=== PATIENT | male | born 1975 | race Two or more races ===

== ENCOUNTER 2018-01-10 21:41 | Emergency (ER) | payer MEDICAID ==
[~2018-01-10] VITALS: Ht 170.2 cm; Wt 80.0 kg
[~2018-01-10 21:41] MED LIST: CEPH-571 PO; LIB25C PO; NO HOME MEDS; ONDA8TAB9 PO
[2018-01-10 21:47] VITALS: BP 116/80
== END 2018-01-10 23:42 | disposition left against medical advice (07) ==
LOC: ER 21:41
DX: Z20.2 Contact with and (suspected) exposure to infections with a predominantly sexual mode of transmission (principal); R30.0 Dysuria; R36.9 Urethral discharge, unspecified; F12.90 Cannabis use, unspecified, uncomplicated; F11.90 Opioid use, unspecified, uncomplicated
CPT/HCPCS: 99281

== ENCOUNTER 2020-02-21 23:00 | Emergency (ER) | payer MEDICAID ==
[~2020-02-21] VITALS: Ht 170.2 cm; Wt 88.5 kg
[2020-02-21 23:05] VITALS: BP 149/100
== END 2020-02-21 23:45 | disposition home or self-care (01) ==
LOC: ER 23:01
DX: F12.90 Cannabis use, unspecified, uncomplicated (principal); F15.10 Other stimulant abuse, uncomplicated; F11.10 Opioid abuse, uncomplicated; F41.9 Anxiety disorder, unspecified; F17.200 Nicotine dependence, unspecified, uncomplicated; Z59.0 Homelessness; Z00.00 Encounter for general adult medical examination without abnormal findings; Z56.0 Unemployment, unspecified; Z79.899 Other long term (current) drug therapy
CPT/HCPCS: 99281

== ENCOUNTER 2020-07-30 19:51 | Emergency (ER) | payer MEDICAID ==
[~2020-07-30] VITALS: Ht 170.2 cm; Wt 93.1 kg
[2020-07-30 20:00] VITALS: BP 154/100
[2020-07-30] MEDS ORDERED: ONDA4TAB6 PO (21:10)
== END 2020-07-30 21:28 | disposition home or self-care (01) ==
LOC: ER 19:52
DX: F11.23 Opioid dependence with withdrawal (principal); F41.9 Anxiety disorder, unspecified; R61 Generalized hyperhidrosis; R06.89 Other abnormalities of breathing; F12.90 Cannabis use, unspecified, uncomplicated; Z56.0 Unemployment, unspecified; Z87.01 Personal history of pneumonia (recurrent); Z59.0 Homelessness; Z72.89 Other problems related to lifestyle; Z87.81 Personal history of (healed) traumatic fracture; Z86.19 Personal history of other infectious and parasitic diseases
CPT/HCPCS: 99283

== ENCOUNTER 2020-12-27 02:48 | Emergency (ER) | payer MEDICAID ==
[~2020-12-27] VITALS: Ht 170.2 cm; Wt 88.6 kg
[~2020-12-27 02:48] MED LIST changes: +ONDA4TAB6 PO
[2020-12-27 03:05] VITALS: BP 120/78
== END 2020-12-27 04:15 | disposition home or self-care (01) ==
LOC: ER 02:49
DX: J02.9 Acute pharyngitis, unspecified (principal); Z20.822 Contact with and (suspected) exposure to COVID-19; B34.9 Viral infection, unspecified; R53.1 Weakness; R52 Pain, unspecified; R11.0 Nausea; F41.9 Anxiety disorder, unspecified; F12.90 Cannabis use, unspecified, uncomplicated; F11.90 Opioid use, unspecified, uncomplicated; Z87.01 Personal history of pneumonia (recurrent); Z86.19 Personal history of other infectious and parasitic diseases; Z72.89 Other problems related to lifestyle; Z56.0 Unemployment, unspecified; Z59.0 Homelessness; Z79.2 Long term (current) use of antibiotics; Z79.899 Other long term (current) drug therapy
CPT/HCPCS: 87635; 99283; C9803

== ENCOUNTER 2022-05-06 09:01 | Emergency (ER) | payer MEDICAID ==
[~2022-05-06] VITALS: Ht 170.2 cm; Wt 84.1 kg
[2022-05-06 09:04] VITALS: BP 118/82
[2022-05-06] MEDS ORDERED: ondansetron 4mg rapidly disintigrating tab PO ONE (10:55)
[2022-05-06 11:15] LABS: BASOPHILS # (AUTO) 0.1 X10'3 (0-0.2); BASOPHILS % (AUTO) 1.5 % (0-1); EOSINOPHILS # (AUTO) 0.3 X10'3 (0-0.9); EOSINOPHILS % (AUTO) 7.4 % (0-6); HEMATOCRIT 45.9 % (42.0-52.0); HEMOGLOBIN 15.6 g/dl (14.0-17.9); LYMPHOCYTES # (AUTO) 1.3 X10'3 (1.1-4.8); LYMPHOCYTES % (AUTO) 28.1 % (21-51); MEAN CORPUSCULAR HEMOGLOBIN 30.1 PG (27.0-31.0); MEAN CORPUSCULAR VOLUME 88.5 FL (78-98); MEAN PLATELET VOLUME 7.8 FL (7.4-10.4); MONOCYTES # (AUTO) 0.5 X10'3 (0-0.9); MONOCYTES % (AUTO) 11.5 % (2-12); NEUTROPHILS # (AUTO) 2.4 X10'3 (1.8-7.7); NEUTROPHILS % (AUTO) 51.5 % (42-75); PLATELET COUNT 196 X10'3 (140-440); RED BLOOD COUNT 5.19 X10'6 (4.70-6.10); RED CELL DISTRIBUTION WIDTH 13.2 % (11.5-14.5); WHITE BLOOD COUNT 4.6 X10'3 (4.5-11.0)
[2022-05-06 11:24] LABS: ALANINE AMINOTRANSFERASE 27 U/L (12-78); ALBUMIN 3.9 G/DL (3.4-5.0); ALBUMIN/GLOBULIN RATIO 0.9 (1.1-1.5); ALKALINE PHOSPHATASE 74 IU/L (46-116); ANION GAP 8 (8-16); ASPARTATE AMINO TRANSFERASE 32 U/L (10-37); BILIRUBIN,TOTAL 0.6 MG/DL (0.1-1.0); BLOOD UREA NITROGEN 15 MG/DL (7-18); BUN/CREATININE RATIO 19.7 (5.4-32.0); CALCIUM 9.5 MG/DL (8.5-10.1); CHLORIDE 100 MMOL/L (99-107); CREATININE 0.76 MG/DL (0.60-1.10); GLUCOSE 112 MG/DL (70-104); LIPASE < 50 U/L (73-393); POTASSIUM 4.2 MMOL/L (3.5-5.1); SODIUM 136 MMOL/L (135-145); TOTAL CARBON DIOXIDE 28.3 MMOL/L (24-32); TOTAL PROTEIN 8.1 G/DL (6.4-8.2); eGFR > 90 ML/MIN
[2022-05-06] MEDS ORDERED: ONDA4TAB12 PO (11:30)
== END 2022-05-06 11:42 | disposition home or self-care (01) ==
LOC: ER 09:02
DX: R11.2 Nausea with vomiting, unspecified (principal); Z59.00 Homelessness unspecified
CPT/HCPCS: 36415; 80053; 83690; 85025; 99283

== ENCOUNTER 2023-10-29 20:25 | Inpatient (IN) | payer MEDICAID, OTHER ==
[~2023-10-29] VITALS: Ht 175.3 cm; Wt 101.0 kg
[~2023-10-29 20:25] MED LIST changes: +ONDA4TAB12 PO
[2023-10-29] MEDS: tranexamic acid inj. 1,000 MG in normal saline 100ml IV soln 90 ML IV ONE (20:46)
[2023-10-29] MEDS: normal saline 1000ml 1,000 ML IV ONE ×2 (20:47)
[2023-10-29] MEDS ORDERED: iohexol 300mg/ml 100ml inj. ONE (20:52)
[2023-10-29] MEDS ORDERED: iohexol 350MG/ML 100ml bottle IV ONE (20:54)
[2023-10-29 20:57] LABS: BASOPHILS # (AUTO) 0.1 X10'3 (0-0.2); BASOPHILS % (AUTO) 1.2 % (0-1); EOSINOPHILS # (AUTO) 0.3 X10'3 (0-0.9); EOSINOPHILS % (AUTO) 4.2 % (0-6); HEMATOCRIT 42.1 % (42.0-52.0); HEMOGLOBIN 13.9 g/dl (14.0-17.9); LYMPHOCYTES # (AUTO) 3.6 X10'3 (1.1-4.8); LYMPHOCYTES % (AUTO) 47.4 % (21-51); MEAN CORPUSCULAR HEMOGLOBIN 30.7 PG (27.0-31.0); MEAN CORPUSCULAR VOLUME 92.9 FL (78-98); MEAN PLATELET VOLUME 7.6 FL (7.4-10.4); MONOCYTES # (AUTO) 0.7 X10'3 (0-0.9); MONOCYTES % (AUTO) 9.4 % (2-12); NEUTROPHILS # (AUTO) 2.8 X10'3 (1.8-7.7); NEUTROPHILS % (AUTO) 37.8 % (42-75); PLATELET COUNT 303 X10'3 (140-440); RED BLOOD COUNT 4.54 X10'6 (4.70-6.10); RED CELL DISTRIBUTION WIDTH 13.5 % (11.5-14.5); WHITE BLOOD COUNT 7.5 X10'3 (4.5-11.0)
[2023-10-29 21:00] LABS: APTT 25 SECONDS (22-32); INR 1.1 INR
[2023-10-29] MEDS: vancomycin/NS 1 GM ADD-VANTAGE 250 ML IV ONE (21:03)
[2023-10-29 21:04] LABS: ALBUMIN 3.8 G/DL (3.4-5.0); ANION GAP 14 (8-16); BLOOD UREA NITROGEN 19 MG/DL (7-18); BUN/CREATININE RATIO 20.7 (10.0-20.0); CHLORIDE 102 MMOL/L (99-107); CREATININE 0.92 MG/DL (0.60-1.10); ETHANOL 144 MG/DL (<10); GLUCOSE 120 MG/DL (70-104); POTASSIUM 3.3 MMOL/L (3.5-5.1); SODIUM 139 MMOL/L (135-145); TOTAL CARBON DIOXIDE 23.5 MMOL/L (24-32); eCRCL 97 ML/MIN; eGFR 87 ML/MIN
[2023-10-29] MEDS ORDERED: midazolam 1 mg/ML 2ml injection ONE (21:17)
[2023-10-29] MEDS ORDERED: LIDOcaine 1% (10mg/ml) 2ml vial ONE (21:58)
[2023-10-29] MEDS ORDERED: rocuronium 10mg/ml inj IV ONE (21:58)
[2023-10-29] MEDS ORDERED: fentaNYL /PF 50mcg/ml 5ml ampule ONE (21:58)
[2023-10-29] MEDS ORDERED: LIDOcaine 2% (20mg/ml) 5ml vial ONE (21:58)
[2023-10-29] MEDS ORDERED: neostigmine methylsulfate 1 MG/ML 10ml vial ONE (22:15)
[2023-10-29] MEDS ORDERED: ondansetron/PF 4mg/2ml inj ONE (22:15)
[2023-10-29] MEDS ORDERED: dexamethasone sod phosphate 4mg/ml inj. ONE (22:15)
[2023-10-29] MEDS ORDERED: glycopyrrolate 0.2mg/ml inj ONE (22:15)
[2023-10-29 22:28] VITALS: BP 139/82; PULSE 115; RESP 18; O2SAT 99
[2023-10-29] MEDS ORDERED: ondansetron/PF 4mg/2ml inj IV PRN ×2 (22:30→22:35)
[2023-10-29] MEDS ORDERED: naloxone 0.4 mg/ml inj IV PRN (22:30)
[2023-10-29] MEDS ORDERED: meperidine/PF 25mg/ml syringe IV PRN ×2 (22:35)
[2023-10-29] MEDS ORDERED: ringers solution, lacted 1,000 ML IV SCH (22:35)
[2023-10-29] MEDS ORDERED: proCHLORperazine 10 MG/2 ml inj IV PRN (22:35)
[2023-10-29] MEDS ORDERED: labetalol 20mg/4ml (5mg/ml) syringe IV PRN (22:35)
[2023-10-29] MEDS ORDERED: morphine 2 MG/ML inj. syringe IV PRN (22:35)
[2023-10-29 22:40] VITALS: BP 139/82; PULSE 97; RESP 17; O2SAT 96
[2023-10-29] MEDS: meperidine/PF 25mg/ml syringe IV PRN (22:40)
[2023-10-29] MEDS ORDERED: CLINDAMYCIN 600mg IN NS 50ML 50 ML IV SCH (22:43)
[2023-10-29] MEDS: acetaminophen 1,000mg/100ml IV 100 ML IV ONE (22:46)
[2023-10-29 22:50] VITALS: BP 138/85; PULSE 86; RESP 14; O2SAT 100
[2023-10-29] MEDS: morphine 4 MG/ML inj SYRINge IV PRN (22:54)
[2023-10-29 23:00] VITALS: BP 144/86; PULSE 87; RESP 13; O2SAT 100
[2023-10-29 23:08] VITALS: BP 144/86; PULSE 87; RESP 13; O2SAT 100
[2023-10-29 23:15] VITALS: BP 178/88; PULSE 88; RESP 18; TEMP 97.2; O2SAT 99
[2023-10-29] MEDS: hydrALAZINE 20mg/ml inj. IV PRN (23:35)
[2023-10-30] VITALS (8 sets, daily range): BP systolic 138–162; BP diastolic 72–78; PULSE 80–87; RESP 10–18; TEMP 97; O2SAT 98–99
[2023-10-30] MEDS: potassium CL 20mEq in D5-1/2NS 1,000 ML IV SCH (00:46)
[2023-10-30] MEDS: clindamycin 600mg/D5W 50ml 50 ML IV SCH (00:47)
[2023-10-30 02:08] LABS: BASOPHILS % (AUTO) 0.2 % (0-1); EOSINOPHILS % (AUTO) 0.1 % (0-6); HEMATOCRIT 39.6 % (42.0-52.0); HEMOGLOBIN 13.2 g/dl (14.0-17.9); LYMPHOCYTES # (AUTO) 0.5 X10'3 (1.1-4.8); MEAN CORPUSCULAR HGB CONC 33.4 g/dL (33.0-36.5); MEAN CORPUSCULAR VOLUME 92.8 FL (78-98); MEAN PLATELET VOLUME 7.7 FL (7.4-10.4); MONOCYTES # (AUTO) 0.2 X10'3 (0-0.9); MONOCYTES % (AUTO) 1.5 % (2-12); NEUTROPHILS # (AUTO) 9.8 X10'3 (1.8-7.7); NEUTROPHILS % (AUTO) 93.2 % (42-75); PLATELET COUNT 235 X10'3 (140-440); RED BLOOD COUNT 4.26 X10'6 (4.70-6.10); RED CELL DISTRIBUTION WIDTH 13.8 % (11.5-14.5); WHITE BLOOD COUNT 10.5 X10'3 (4.5-11.0)
[2023-10-30 02:17] LABS: ALBUMIN 3.4 G/DL (3.4-5.0); ANION GAP 10 (8-16); BLOOD UREA NITROGEN 13 MG/DL (7-18); BUN/CREATININE RATIO 19.7 (10.0-20.0); CALCIUM 8.3 MG/DL (8.5-10.1); CHLORIDE 102 MMOL/L (99-107); CREATININE 0.66 MG/DL (0.60-1.10); GLUCOSE 159 MG/DL (70-104); POTASSIUM 3.8 MMOL/L (3.5-5.1); SODIUM 138 MMOL/L (135-145); TOTAL CARBON DIOXIDE 25.8 MMOL/L (24-32); eCRCL 135 ML/MIN; eGFR > 90 ML/MIN
[2023-10-30] MEDS: HYDROcodone/acetaminophen 10/325mg tab PO PRN (04:28)
[2023-11-01] MEDS ORDERED: METH10SO PO (11:09)
[2023-11-01] MEDS ORDERED: DOXY-457 PO (11:22)
== END 2023-10-30 06:45 | disposition left against medical advice (07) | DRG 581 ==
LOC: ER 20:25 → UNDOADMOB 21:40 → EEVIPCON 21:40 → PACU 21:40 → OBSVTOIN 22:31 → CICU 2S 23:15
PROVIDERS: ADMIT Surgery; ATTEND Surgery
PROC: 0WJ60ZZ Inspection of Neck, Open Approach (ICD-10-PCS; principal; 2023-10-29 21:00)
DX: S11.91XA Laceration without foreign body of unspecified part of neck, initial encounter (principal); F41.9 Anxiety disorder, unspecified; Z53.21 Procedure and treatment not carried out due to patient leaving prior to being seen by health care provider; X99.8XXA Assault by other sharp object, initial encounter; Y93.89 Activity, other specified; Y92.89 Other specified places as the place of occurrence of the external cause; Y99.8 Other external cause status
CPT/HCPCS: Z7506; Z7508; 36415; 36430; 70491; 71045; 71260; 74177; 80048; 80320; 84484; 85025; 85610; 85730; 86885; 86900; 86901; 86920; A4615; A4618; A6258; A6449; A7000; C1751; G0378; J0131; J0360; J1100; J2175; J2250; J2270; J2405; J2710; J3010; J3370; J3480; J3490; J7030; J7120; P9016; Q9967

== ENCOUNTER 2023-11-12 02:33 | Emergency (ER) | payer OTHER ==
[~2023-11-12] VITALS: Ht 170.2 cm; Wt 93.2 kg
[~2023-11-12 02:33] MED LIST changes: -CEPH-571 PO; +DOXY-460 PO; -LIB25C PO; +METH10SO PO; -NO HOME MEDS; -ONDA4TAB12 PO; -ONDA4TAB6 PO; -ONDA8TAB9 PO
[2023-11-12 02:38] VITALS: BP 128/83; PULSE 116; RESP 18; TEMP 98.7; O2SAT 98
[2023-11-13] MEDS ORDERED: AMOX-117 PO (08:40)
[2023-11-13] MEDS ORDERED: CHLO473M13 PO (08:40)
== END 2023-11-12 04:29 | disposition left against medical advice (07) ==
LOC: ER 02:33
DX: R22.9 Localized swelling, mass and lump, unspecified (principal); Z53.21 Procedure and treatment not carried out due to patient leaving prior to being seen by health care provider

== ENCOUNTER 2023-11-13 07:39 | Emergency (ER) | payer SELFPAY ==
[~2023-11-13] VITALS: Ht 170.2 cm; Wt 87.3 kg
[~2023-11-13 07:39] MED LIST changes: -DOXY-460 PO
[2023-11-13 08:00] VITALS: TEMP 98.4
[2023-11-13] MEDS ORDERED: AMOX-117 PO (08:40)
[2023-11-13] MEDS ORDERED: CHLO473M13 PO (08:40)
[2023-11-13 08:41] VITALS: BP 142/78; PULSE 90; RESP 16; O2SAT 95
[2023-11-13] MEDS: amox tr/potassium clavulanate 875/125mg TAB PO ONE (08:48)
== END 2023-11-13 08:55 | disposition home or self-care (01) ==
LOC: ER 07:40
DX: K13.0 Diseases of lips (principal); K04.7 Periapical abscess without sinus; Z79.2 Long term (current) use of antibiotics; Z79.899 Other long term (current) drug therapy
CPT/HCPCS: 99283

== ENCOUNTER 2024-02-18 13:30 | Emergency (ER) | payer MEDICAID ==
[~2024-02-18] VITALS: Ht 170.2 cm; Wt 90.9 kg
[~2024-02-18 13:30] MED LIST changes: +CHLO473M13 PO
[2024-02-18] MEDS: ketorolac trometh 30MG/ML vial 30 MG/ML VIAL IM ONE (14:06)
[2024-02-18] MEDS ORDERED: AMOX-580 PO (14:19)
[2024-02-18 14:40] VITALS: BP 133/83; PULSE 79; RESP 18; TEMP 98.8; O2SAT 98
== END 2024-02-18 14:40 | disposition home or self-care (01) ==
LOC: ER 13:31
DX: K08.89 Other specified disorders of teeth and supporting structures (principal); K04.7 Periapical abscess without sinus; K02.9 Dental caries, unspecified; F11.90 Opioid use, unspecified, uncomplicated; F41.9 Anxiety disorder, unspecified; Z79.899 Other long term (current) drug therapy; Z72.89 Other problems related to lifestyle; Z59.00 Homelessness unspecified
CPT/HCPCS: 96372; 99283; J1885

== ENCOUNTER 2024-02-20 13:11 | Emergency (ER) | payer MEDICAID ==
[~2024-02-20] VITALS: Ht 170.2 cm; Wt 90.9 kg
[~2024-02-20 13:11] MED LIST changes: +AMOX-580 PO
[2024-02-20] MEDS ORDERED: AZIT500T9 PO (14:45)
[2024-02-20] MEDS ORDERED: LOPE-190 PO (14:48)
[2024-02-20 14:58] VITALS: BP 150/87; PULSE 72; RESP 16; TEMP 97.8; O2SAT 99
== END 2024-02-20 14:59 | disposition home or self-care (01) ==
LOC: ER 13:11
DX: K04.7 Periapical abscess without sinus (principal); R19.7 Diarrhea, unspecified; F41.9 Anxiety disorder, unspecified; F11.90 Opioid use, unspecified, uncomplicated; Z79.899 Other long term (current) drug therapy; Z79.2 Long term (current) use of antibiotics; Z72.89 Other problems related to lifestyle; Z59.00 Homelessness unspecified
CPT/HCPCS: 99283

== ENCOUNTER 2024-04-28 21:37 | Emergency (ER) | payer MEDICAID, OTHER ==
[~2024-04-28] VITALS: Ht 170.2 cm; Wt 84.6 kg
[~2024-04-28 21:37] MED LIST changes: -AMOX-580 PO; +AZIT500T9 PO; +LOPE-190 PO
[2024-04-28] MEDS: acetaminophen 325mg tablet PO ONE (22:41)
[2024-04-28] MEDS: ibuprofen tablet 400 MG TABLET PO ONE (22:42)
[2024-04-28 23:02] VITALS: BP 134/92; PULSE 119; RESP 20; TEMP 98.6; O2SAT 99
== END 2024-04-28 23:03 | disposition home or self-care (01) ==
LOC: ER 21:38
DX: S62.366A Nondisplaced fracture of neck of fifth metacarpal bone, right hand, initial encounter for closed fracture (principal); F41.9 Anxiety disorder, unspecified; F11.90 Opioid use, unspecified, uncomplicated; Z88.1 Allergy status to other antibiotic agents; Z72.89 Other problems related to lifestyle; Z59.00 Homelessness unspecified; Z79.2 Long term (current) use of antibiotics; Z79.899 Other long term (current) drug therapy; Z87.81 Personal history of (healed) traumatic fracture; Y04.0XXA Assault by unarmed brawl or fight, initial encounter; Y93.89 Activity, other specified; Y92.89 Other specified places as the place of occurrence of the external cause; Y99.8 Other external cause status
CPT/HCPCS: 29125; 73130; 99283; A6449

== ENCOUNTER 2024-11-03 09:00 | Emergency (ER) | payer MEDICAID ==
[~2024-11-03] VITALS: Ht 170.2 cm; Wt 92.2 kg
[2024-11-03 09:04] VITALS: BP 142/88; PULSE 114; O2SAT 97
[2024-11-03] MEDS ORDERED: IBUP-1986 PO (09:21)
[2024-11-03] MEDS ORDERED: AMOX-580 PO (09:21)
--- NOTE | 2024-11-03 09:21 | Physician Documentation ---
History of Present Illness ~ Chief Complaint: Mouth Pain Stated Complaint: MOUTH INFECTION Time Seen by MD: 09:06 Primary Medical Doctor: DENYS AUGUSTINE [facility] 49-year-old male who presents with four days of worsening upper anterior dental pain, patient reports he is waiting to get in with a dentist as his appointment is several weeks out there was on the cancellation wait list in his attempting to get in sooner, patient reports no fevers, difficulty swallowing, or difficulty breathing. Patient reports no other acute symptoms or concerns. Medication Reconciliation Allergies: Coded Allergies: No Known Allergies (Unverified , 02/18/24) Scheduled Amox Tr/Potassium Clavulanate 875/125 MG (Augmentin 875/125 MG), 1 TAB PO Q12H Azithromycin (Azithromycin), 1 TAB PO DAILY Chlorhexidine Gluconate (Periogard), 15 ML PO Q12H Ibuprofen (Ibuprofen), 1 TAB PO Q8H Loperamide HCl (Imodium A-D), 1 CAP PO Q8H Methadone Hcl (Methadone Liquid), 61 MG PO DAILY, (Reported) Past Medical History Past Medical History: Pneumonia, Hepatitis C, Extremity Fracture, Anxiety Past Surgical History: noncontributory Alcohol Use: Occasionally Drug Use: none, heroin Lives In: Homeless Occupation: employed Review of Systems ROS Upper anterior dental pain as stated above in the HPI, otherwise all systems are reviewed and negative. Physical Exam Vital Signs: Temperature: 96.8, Source: Temporal, Heart Rate: 114, Respiratory Rate: 18, BP: 142/88, Pulse Oximetry: 97, Weight: 92.150 Oxygen Flow Rate: 0 Physical Exam VITALS: Reviewed and as above. GENERAL: Alert, nontoxic appearing, no apparent distress. HEENT: Upper anterior teeth severely decayed, no facial swelling, no submandibular swelling, no elevation of the tongue, uvula midline, no drooling RESPIRATORY: No increased work of breathing, no respiratory distress, speaking in full clear sentences Progress Results/Orders Results/Orders Vital Signs 11/03/24 11/03/24 11/03/24 09:04 09:31 09:38 Temp 96.8 96.8 Pulse 114 Resp 18 16 B/P (MAP) 142/88 Pulse Ox 97 O2 Flow Rate 0 Medical Decision Making Findings This well appearing 49-year-old male presented with dental pain to the upper anterior teeth. Based on history and physical exam I have low clinical suspicion for peritonsillar abscess, uvulitis, deep tissue space infection of the head/neck, or impending airway compromise. There was no submandibular swelling or elevation of the tongue, the uvula was midline, patient is able to swallow fluids and secretion without difficulty, there is no increased work of breathing or noisy breathing. Based on presentation I am concerned for odontogenic infection and antibiotic treatment with Augmentin is indicated. Pain control with non-narcotic medications is appropriate at this time. Is otherwise well-appearing with remainder of physical exam benign in his appropriate for outpatient follow up. Patient provided return to care precautions and instructed to follow up with his dentist for definitive treatment, patient verbalized understanding of follow up instructions and return to care instructions. Tooth Diff. Dx: Considerations: Include: Alveolar fracture, Aveolar osteitis, ANUG, Facial cellulitis, Periapical abscess, Periodontal abscess, Pulpitis, Tooth-avulsion, Tooth-fracture, Tooth-subluxation Departure Time of Disposition: 09:18 Disposition: HOME / SELF CARE / HOMELESS Impression: Primary Impression: Toothache Condition: Improved Discharge Instructions: Dental Pain, [id number] Additional Instructions: Follow up with a dentist as soon a possible, please take the antibiotics as prescribed. You may use the ibuprofen as prescribed for pain do not start taking this medication for the next 12 hours as you received a shot of medication in the emergency department that replace your 1st dose, take ibuprofen with food to avoid stomach upset. You may also use up to a 1000 mg of Tylenol 4 times a day as needed for breakthrough pain in combination with the ibuprofen. Please also follow up with your primary care provider or the [facility] in the next few days. Please return to the emergency department for any new or worsening concerning symptoms including but not limited to worsening facial swelling, fever, difficulty breathing, or difficulty swallowing Referrals: NO PRIMARY CARE PROVIDER (PCP) Prescriptions Ibuprofen (Ibuprofen) 800 Mg Tablet 1 TAB PO Q8H for pain for 10 Days, #30 TAB 0 Refills Prov: YUMI PERKINS 11/03/24 Amox Tr/Potassium Clavulanate 875/125 MG (Augmentin 875/125 MG) 875 Mg-125 Mg Tablet 1 TAB PO Q12H for 10 Days, #20 TAB Prov: YUMI PERKINS 11/03/24 Education Educated: Patient Educated regarding: diagnosis, treatment, prognosis, need for follow up Signature Scribe Signature: No scribe Attestation: The note accurately reflects work and decisions made by me.RADHA Rosales 11/03/24 18:50 YUMI PERKINS Nov 03, 2024 09:21 JANINA NUNEZ MD Nov 05, 2024 07:32
[2024-11-03 09:31] VITALS: RESP 16
[2024-11-03] MEDS: ketorolac trometh 15mg/ml vial 15 MG/ML ML IM ONE (09:31)
[2024-11-03 09:38] VITALS: TEMP 96.8
== END 2024-11-03 09:43 | disposition home or self-care (01) ==
LOC: ER 09:01
DX: K08.89 Other specified disorders of teeth and supporting structures (principal); F41.9 Anxiety disorder, unspecified; F11.90 Opioid use, unspecified, uncomplicated
CPT/HCPCS: 96372; 99283; J1885

== ENCOUNTER 2025-03-30 20:30 | Emergency (ER) | payer MEDICAID ==
[~2025-03-30] VITALS: Ht 170.2 cm; Wt 84.5 kg
[~2025-03-30 20:30] MED LIST changes: +IBUP-1986 PO
--- NOTE | 2025-03-30 21:54 | Physician Documentation ---
History of Present Illness ~ Chief Complaint: Anxiety Stated Complaint: ANXIETY Time Seen by MD: 21:53 Primary Medical Doctor: DENYS AUGUSTINE [facility] Patient presents to the emergency room for evaluation of insomnia and anxiety. Patient reports he has had long history of this. Over the last two days he has attempted taking melatonin and Benadryl and he feels tired when he takes these medicines but just can not fall asleep. He reports he has not slept in two days. Medication Reconciliation Allergies: Coded Allergies: No Known Allergies (Unverified , 03/30/25) Scheduled Azithromycin (Azithromycin), 1 TAB PO DAILY Chlorhexidine Gluconate (Periogard), 15 ML PO Q12H Ibuprofen (Ibuprofen), 1 TAB PO Q8H Loperamide HCl (Imodium A-D), 1 CAP PO Q8H Methadone Hcl (Methadone Liquid), 61 MG PO DAILY, (Reported) Past Medical History Past Medical History: Pneumonia, Hepatitis C, Extremity Fracture, Anxiety Past Surgical History: noncontributory Alcohol Use: Occasionally Drug Use: none, heroin Lives In: Homeless Occupation: employed Review of Systems ROS All review of systems negative except as per HPI Physical Exam Vital Signs: Temperature: 98.4, Source: Oral, Heart Rate: 108, Respiratory Rate: 16, BP: 165/105, Pulse Oximetry: 99, Weight: 84.550 Oxygen Flow Rate: 0 Physical Exam General: Patient is awake, alert, oriented x4 in no acute distress and well appearing.~ Head: Normocephalic and atraumatic. Eyes: Conjunctival normal. EOMI. PERRL. ENT: Mucous membranes moist. Neck: Supple, trachea is midline. Chest: Clear to auscultation bilaterally without rales, rhonchi, or wheezes. There is no accessory muscle use or retractions. Cardiac: RRR without murmurs, gallops, or rubs. Progress Results/Orders Results/Orders Vital Signs 03/30/25 03/30/25 20:48 21:47 Temp 98.4 Pulse 108 Resp 15 16 B/P (MAP) 165/105 Pulse Ox 99 O2 Flow Rate 0 Medical Decision Making Additional information obtaine: old records Findings Patient presents to the emergency room with insomnia as per HPI. Differentials include but are not limited to thyroid disorder, anxiety, obstructive sleep apnea. Patient that has cooperative. He is well-appearing with a heart rate during my exam of 90. I do not feel emergent labs or imaging is necessary. The need to follow up with his doctor discussed. He denies any SI/HI Differential Dx:Considerations: Include: Alcohol abuse, Anxiety, Bipolar disorder, Conversion disorder, Depression, Encephaloathy, Homicidal, Panic disorder, Personality disorder, Schizophrenia, Substance abuse, Suicidal, Other Departure Disposition: HOME / SELF CARE / HOMELESS Impression: Primary Impression: Anxiety Additional Impression: Insomnia Condition: Stable Discharge Instructions: Generalized Anxiety Disorder, Adult Additional Instructions: Call your doctor tomorrow to arrange for follow up. Referrals: NO PRIMARY CARE PROVIDER (PCP) Signature Scribe Signature: No scribe Attestation: The note accurately reflects work and decisions made by me.Lester Adhikari MD 03/30/25 22:01 LESTER ADHIKARI MD Mar 30, 2025 21:54
[2025-03-30 21:58] VITALS: BP 132/74; PULSE 88; TEMP 98.1; O2SAT 99
[2025-03-30 22:08] VITALS: RESP 18
== END 2025-03-30 22:11 | disposition home or self-care (01) ==
LOC: ER 20:31
DX: F41.9 Anxiety disorder, unspecified (principal); G47.00 Insomnia, unspecified; F11.90 Opioid use, unspecified, uncomplicated; Z87.01 Personal history of pneumonia (recurrent); Z86.19 Personal history of other infectious and parasitic diseases; Z79.899 Other long term (current) drug therapy; Z59.00 Homelessness unspecified; Z72.89 Other problems related to lifestyle
CPT/HCPCS: 99283